=== PATIENT | female | born 1985 | race Caucasian/White ===

== ENCOUNTER 2019-02-18 22:30 | Emergency (ER) | payer OTHER, SELFPAY ==
[2019-02-18 22:30] VITALS: BP 149/90; PULSE 93; RESP 18; TEMP 36.8; O2SAT 97; BMI 41.8
--- NOTE | 2019-02-18 23:05 | ED_ITS ---
HPI - Ear Problem General Chief complaint: Ear Stated complaint: RIGHT EAR INFECTION Time Seen by Provider: 02/18/19 22:34 Source: patient Mode of arrival: ambulatory Limitations: no limitations History of Present Illness HPI Narrative: 34-year-old female here for evaluation of right ear pain. She states it has been going on for the past couple days but worsening over the past day or so. She states she went swimming earlier this week than 1 on a flight afterwards. Has had pain in the right ear that is radiating down her neck since then. She also is complaining of fullness in her left ear. No sinus issues. No sore throat. Has not tried anything for symptoms prior to arrival Related Data Home Medications Medication Instructions Recorded Confirmed nifedipine [Adalat CC] 30 mg PO QDAY #30 tab 03/24/16 Previous Rx's Medication Instructions Recorded sertraline 50 mg PO QDAY #90 tab 03/24/16 nystatin [Nyamyc] 100,000 u TP TID #15 gm 05/07/16 ciprofloxacin-dexamethasone 4 drop EAR-RIGHT TID 7 Days #7.5 ml 02/18/19 [Ciprodex] Allergies Allergy/AdvReac Type Severity Reaction Status Date / Time No Known Drug Allergies Allergy Verified 02/18/19 22:41 Review of Systems Constitutional Denies fever(s) ENT Ears, Nose, Mouth, and Throat: Denies vertigo, Denies dizziness, Denies tinnitus and Denies sore throat Comments: Right ear pain, left ear fullness Cardiovascular Denies chest pain and Denies dyspnea Respiratory Denies dyspnea Gastrointestinal Gastrointestinal: Denies abdominal pain Integumentary/Breasts Denies rash Neurologic Denies vertigo and Denies dizziness Hematologic/Lymphatic Denies easy bleeding and Denies easy bruising FOR[facility]LY [facility] Medical History Patient denies medical problems (Acute) Social History marital status: lives independently: Yes Social History marital status: lives independently: Yes Exam Initial Vital Signs Initial Vital Signs: Vital Signs Temperature 98.3 F 02/18/19 22:30 Pulse Rate 93 H 02/18/19 22:30 Respiratory Rate 18 02/18/19 22:30 Blood Pressure 149/90 H 02/18/19 22:30 Pulse Oximetry 97 02/18/19 22:30 Const General: cooperative, healthy appearing, comfortable, well developed, well groomed and No acute distress Orientation: alert, awake and oriented x3 HENMT Head: normal to inspection and normocephalic Ears: EAC abnormal erythema on the right, edema on the right and EAC tenderness on the right and TM abnormal bulging bilaterally and with fluid behind the TM bilaterally; not erythematous Nose: nares normal Resp Effort & Inspection: normal respiratory effort Skin Lesions: no lesions Rashes: no rashes Neuro General: alert and awake Extrem General: normal to inspection and capillary refill normal Psych Appearance: grossly normal and well kempt Course Vital Signs - 8 hr 02/18/19 22:30 Temperature 98.3 F Pulse Rate 93 H Respiratory Rate 18 Blood Pressure 149/90 H Pulse Oximetry 97 Medical Decision Making MDM Narrative Medical decision making narrative: Physical exam is consistent with otitis externa on the right. I was able to visualize the tympanic membrane. She does have bulging tympanic membranes bilaterally. Will treat with antibiotic drops for otitis externa. Also discussed the use of decongestants. She was given return precautions and follow-up instructions. She expressed understanding and agreement with plan Discharge Plan Departure Patient Disposition: Home Clinical Impression: Otitis externa Qualifiers: Otitis externa type: unspecified type Chronicity: acute Laterality: right Qualified Code(s): H60.501 - Unspecified acute noninfective otitis externa, right ear Discharge Date/Time: 02/18/19 23:10 Interventions: ED Discharge Assessment Last Done: 02/18/19 23:10 Activity Restrictions/Additional Instructions: Recommend you start on a decongestant such as Claritin or Amisha or Zyrtec. Start the antibiotic drops as directed. Return to the emergency department for any new or worsening symptoms Prescriptions: New Ciprodex 0.3-0.1 % drops,suspension 4 drop EAR-RIGHT TID 7 Days Qty: 7.5 RF: 0 No Action nifedipine [Adalat CC] 30 MG tablet extended release 30 mg PO QDAY Qty: 30 RF: 0 sertraline 50 MG tablet 50 mg PO QDAY Qty: 90 RF: 0 nystatin [Nyamyc] 15 GM powder 100,000 u TP TID Qty: 15 RF: 0 Referrals: Zara,Karin, DO [Primary Care Provider] -
== END 2019-02-18 23:10 | disposition home or self-care (01) ==
PROVIDERS: Emergency Provider Emergency Medicine; PCP Family Medicine
DX: H60.501 Unspecified acute noninfective otitis externa, right ear (principal)
CPT/HCPCS: 99282; 99283

== ENCOUNTER 2022-04-19 18:03 | Emergency (ER) | payer OTHER, SELFPAY ==
[2022-04-19 18:24] VITALS: BP 167/101; PULSE 84; RESP 18; TEMP 36.5; O2SAT 98; BMI 46.0
--- NOTE | 2022-04-19 19:21 | ED_ITS ---
HPI - Ear Problem <Lucas Rider PA-C - Last Filed: 04/19/22 19:43> General Chief complaint: Ear Stated complaint: Headache, ear pain Time Seen by Provider: 04/19/22 18:58 Source: patient Mode of arrival: Family Vehicle History of Present Illness HPI Narrative: Patient is a 37 female who presents bilateral ear pain that started this morning. Also states she has an associated headache started on Thursday. St ates the headache feels like a tightening pressure around her head. She is had migraine headaches in the past and they do not like this. States the migraine headaches feels like a pressure bag of her neck. Denies concern chest pain shortness of breath fever chills nausea or vomiting or any GI concerns. Related Data Home Medications Medication Instructions Recorded Confirmed nifedipine 30 mg tablet,extended 30 mg PO QDAY #30 tabs 03/24/16 release (Adalat CC) Previous Rx's Medication Instructions Recorded sertraline 50 mg tablet 50 mg PO QDAY #90 tabs 03/24/16 nystatin 100,000 unit/gram topical 100,000 u TP TID ##15 05/07/16 powder (Nyamyc) amoxicillin 875 mg tablet 875 mg PO BID #10 tabs 04/19/22 Allergies Allergy/AdvReac Type Severity Reaction Status Date / Time No Known Drug Allergies Allergy Verified 04/19/22 18:24 Review of Systems <Lucas Rider PA-C - Last Filed: 04/19/22 19:43> Review of Systems Narrative: R.O.S.: General: No fever, chills or fatigue. Cardiovascular: No chest pain or palpitations Respiratory: No S.O.B. HEENT: Bilateral ear pain and headache Gastrointestinal: No nausea or vomiting : No urinary concerns Skin: No rash or associated abnormalities Musculoskeletal: No pain in muscles or joints, no limitation of range of motion, no paresthesia or numbness. ?? Neurological: Awake, alert and in not apparent distress. No Headaches, changes in vision or other related neurological concerns. Patient History <Lucas Rider PA-C - Last Filed: 04/19/22 19:43> Medical History (Updated 04/19/22 @ 19:38 by Lucas Rider PA-C) Patient denies medical problems Social History (Reviewed 02/19/19 @ 01:57 by MARILYN Souza marital status: lives independently: Yes Smoking Status: Never smoker Smoking Status: Never smoker alcohol intake frequency: 0-2 drinks per day Substance Use Type: marijuana Exam <Lucas Rider PA-C - Last Filed: 04/19/22 19:43> Narrative Exam Narrative: Physical Exam: ? General: normal appearance, well developed, well nourished, alert, and awake. Not in acute distress. ? Head: Normocephalic, no lesions. Chest: Lungs CTAB, no rales, rhonchi or wheezes. ?? Heart: RRR, no murmurs, rubs or gallops. Eyes: PERRLA, EOM's full, conjunctivae clear. ? Neuro: Physiological, no localizing findings, CN3-12 intact. ?? Extremities: Warm, well perfused, FROM, no deformities, no edema. ?? Skin: Normal, no rashes, no lesions noted. ?? Ear: Patient mild erythema to the left tympanic membrane. PSYCHIATRIC: The mood is good, no blunted affect. Speech is clear. Thought process is linear, thought content is appropriate. The voice is without significant inflection. Gastrointestinal: Soft; NT; ND; Pos BS with Neg. rebound tenderness. No scars or major deformities noted on Visual Inspection. Initial Vital Signs Initial Vital Signs: Vital Signs Temperature 97.7 F 04/19/22 18:24 Pulse Rate 84 04/19/22 18:24 Respiratory Rate 18 04/19/22 18:24 Blood Pressure 167/101 H 04/19/22 18:24 Pulse Oximetry 98 04/19/22 18:24 Oxygen Delivery Method 04/19/22 18:24 <Laci Plasencia DO - Last Filed: 04/19/22 23:39> Initial Vital Signs Initial Vital Signs: Vital Signs Temperature 97.7 F 04/19/22 18:24 Pulse Rate 84 04/19/22 18:24 Respiratory Rate 18 04/19/22 18:24 Blood Pressure 167/101 H 04/19/22 18:24 Pulse Oximetry 98 04/19/22 18:24 Oxygen Delivery Method 04/19/22 18:24 Course <Lucas Rider PA-C - Last Filed: 04/19/22 19:43> Vital Signs Vital signs: Vital Signs - 8 hr 04/19/22 18:24 10/08/22 20:16 Temperature 97.7 F Pulse Rate 84 Respiratory Rate 18 20 Blood Pressure 167/101 H 166/96 H Pulse Oximetry 98 Oxygen Delivery Method Room Air <Laci Plasencia DO - Last Filed: 04/19/22 23:39> Vital Signs Vital signs: Vital Signs - 8 hr 04/19/22 18:24 04/19/22 20:16 Temperature 97.7 F Pulse Rate 84 Respiratory Rate 18 20 Blood Pressure 167/101 H 166/96 H Pulse Oximetry 98 Oxygen Delivery Method Room Air Medical Decision Making <Lucas Rider PA-C - Last Filed: 04/19/22 19:43> MDM Narrative Medical decision making narrative: Patient is a 37-year-old female presents to the emergency room today with complaint bilateral ear pain. Physical consistent right-sided otitis media. Physical exam history the inflammation would suspicion upper respiratory concerns. Antibiotics as ordered and patient advised to return to emergency room if any emergent concerns arise. Patient also was advised to purchase her primary should any nonemergent concerns arise. Patient agrees with plan Discharge Plan Departure Patient Disposition: Home Clinical Impression: Otitis media Instructions: DI for Otitis Media (Middle Ear Infection)-Child Activity Restrictions/Additional Instructions: *You have been diagnosed with otitis media. I ordered antibiotics condition. Return to the emergency room emergent concerns arise. I also suggest she report to your primary care provider any nonemergent concerns arise. [ ] *What to do: *Please continue to take your regular medications as directed. [ ] New medication prescriptions sent to your pharmacy: [ ] [x] New medication written as a paper prescription [ ] No new medications given *Please follow up with your primary care provider in 2-3 days, call for an appointment. Let them know you were seen in the Emergency Department and that we ask that you be seen in follow up. We will electronically transmit a record of today's note if your PCP is in our system *If you do not have a primary care provider please contact the [facility] Resource line at [phone]. They will ask some questions about your medical history and help get you set up with a doctor in the community. *Return to Emergency Department if you should have any new, worsening or concerning symptoms, such as [fever greater than 101 F, shaking chills, worsening pain, persistent vomiting or other bothersome symptoms] Prescriptions: New amoxicillin 875 mg tablet 875 mg PO BID Qty: 10 0RF No Action nifedipine [Adalat CC] 30 MG tablet extended release 30 mg PO QDAY Qty: 30 sertraline 50 MG tablet 50 mg PO QDAY Qty: 90 0RF nystatin [Nyamyc] 15 GM powder 100,000 u TP TID Qty: 15 0RF Visit Report Forms: Patient Portal/API <Laci Plasencia DO - Last Filed: 04/19/22 23:39> Cosign ED Attending Cosignature Attestation: I was immediately available in the department for consultation. This documentation has been reviewed and I agree with assessment and plan. Supervised by Laci Plasencia DO
[2022-04-19 20:16] VITALS: BP 166/96; RESP 20
== END 2022-04-19 20:16 | disposition home or self-care (01) ==
PROVIDERS: Emergency Provider Physician Assistant
DX: H66.93 Otitis media, unspecified, bilateral (principal)
CPT/HCPCS: 99281